=== PATIENT | female | born 2000 | race Hispanic/Latino ===

== ENCOUNTER 2021-04-12 21:36 | Emergency (ER) | payer OTHER ==
[2021-04-12] MEDS ORDERED: Mag-Al Plus 1200 MG/1200 MG/120 MG/30 ML UDCUP ONE (22:28)
[2021-04-12] MEDS ORDERED: Lidocaine Viscous Sol 2% 15 ml UD Cup ONE (22:30)
[2021-04-12 22:50] LABS: Bilirubin Neg (Negative); Blood, Urine 25 (Negative); Clarity Slightly Cloudy (Clear); Glucose, Urine (Dipstick) Normal (Negative); Ketone, Urine 5 mg/dL (Negative); Leukocyte Negative (Negative); Nitrite Negative (Negative); Protein, Urine (Dipstick) 15 mg/dl (Neg-Trace); Specific Gravity, Urine 1.025 (1.002-1.036); Urobilinogen Normal mg/dL (Less than 2)
[2021-04-12 22:51] LABS: Specific Gravity 1.025 (1.002-1.036)
[2021-04-12 22:52] LABS: Pregnancy Test - Urine (BHCG) Negative (Negative); Pregu Control Background? CLEAR/WHITE (CLR/WHITE); Pregu Control Bar Appear? YES (CONTROL BAR)
[2021-04-12 22:59] LABS: #Eosinphils 0.1 10x3/uL (0.0-0.5); #Monocytes 0.8 10x3/uL (0.0-1.1); #Neutrophils 7.3 10x3/uL (1.5-8.4); %Basophils 0.3 % (0.0-2.0); %Eosinophils 0.6 % (0.0-6.0); %Lymphocytes 23.2 % (18.0-47.0); %Monocytes 7.1 % (0.0-10.0); %Neutrophils 68.4 % (40.0-75.0); Hemoglobin 11.1 g/dL (12.0-15.5); Mean Corpuscular HGB CONC 31.1 g/dL (32.0-36.0); Mean Corpuscular Hemoglobin 23.8 pg (27.0-33.0); Mean Corpuscular Volume 76.4 fl (81.6-98.3); Platelet Count 394 10x3/uL (150-450); RBC Distribution Width 14.7 % (11.5-14.5); Red Blood Cell (RBC) Count 4.67 10x6/uL (3.90-5.03); White Blood Cell (WBC) Count 10.7 10x3/uL (3.5-10.5)
[2021-04-12 23:05] LABS: Bacteria/HPF 2+ HPF (None Seen); Mucous/LPF 4+ LPF (<2+); RBC/HPF 0-3 HPF (0-3); Squamous Epithelial 0-3 HPF (0-3); WBC/HPF 0-3 HPF (0-3)
[2021-04-12 23:20] LABS: ALT (SGPT) 14 U/L (8-55); AST (SGOT) 14 U/L (5-30); Albumin 3.8 g/dL (3.5-5.0); Alkaline Phosphatase 74 U/L (40-100); Anion Gap 13 mmol/L (10-20); BUN (Urea Nitrogen) 7 mg/dL (8.4-21.0); Bilirubin, Total 0.4 mg/dL (0.2-1.2); Calc. Creatinine Clearance 0 mL/min (70-130); Calcium 9.2 mg/dL (7.8-10.44); Carbon Dioxide 23 mmol/L (22-29); Chloride 106 mmol/L (98-107); Globulin 3.3 g/dL (2.4-3.5); Glucose 108 mg/dL (70-105); Lipase 11 U/L (8-78); Potassium 3.4 mmol/L (3.5-5.1); Protein, Total 7.1 g/dL (6.0-8.3); Sodium 139 mmol/L (136-145)
== END 2021-04-12 23:28 | disposition home or self-care (01) ==
LOC: CSHERS 21:36
DX: R10.32 Left lower quadrant pain (principal); R10.11 Right upper quadrant pain
CPT/HCPCS: 36415; 80053; 81003; 81015; 81025; 83690; 85025; 99284